=== PATIENT | male | born 2000 | race Caucasian/White ===

== ENCOUNTER → 2024-03-11 19:40 | Outpatient (CLI) | payer OTHER, SELFPAY ==
--- NOTE | 2024-03-11 19:45 | DI.MRI.S_ITS ---
PROCEDURE: MR SHOULDER LT WO CON INDICATIONS: PAIN IN LEFT SHOULDER TECHNIQUE: Noncontrast oblique coronal T2 fast spin echo with fat saturation, oblique sagittal T1 spin echo and T2 fast spin echo with fat saturation, axial T1 spin echo and T2 fast spin echo with fat saturation through the shoulder. COMPARISON: None. FINDINGS: Image quality: Excellent. Rotator cuff: The supraspinatus, infraspinatus, and subscapularis tendons appear intact throughout. Sagittal images demonstrate no muscle atrophy. Bones and bursae: No acute trabecular bone injury or fracture. Small chronic traction cystic changes are seen at the posterior superior humeral head. No focal glenohumeral cartilage defect is seen. The acromioclavicular joint is normally aligned. There is a small amount of fluid in the subacromial/subdeltoid bursa. No significant glenohumeral effusion. Capsule and soft tissues: There is nondisplaced tearing of the posterior inferior to posterior superior labrum. The remainder the labrum is intact. The proximal biceps long head tendon appears to be intact with normal positioning. There is partial effacement of the fat signal in the rotator interval. Glenohumeral ligaments appear to be intact. IMPRESSION: 1. Nondisplaced tearing of the posterior inferior to posterior superior labrum. 2. Proximal biceps long head tendon is intact. No rotator cuff tendon tearing. 3. Small subacromial/subdeltoid bursal effusion or mild bursitis. Approved by: Jimmy Nowak M.D. on 03/14/2024 at 9:13
== END ==
LOC: MRI 19:43
PROVIDERS: Referring Provider Nurse Practitioner Family; Visit Provider Nurse Practitioner Family
DX: S43.492A Other sprain of left shoulder joint, initial encounter (principal); M25.512 Pain in left shoulder
CPT/HCPCS: 73221

== ENCOUNTER → 2024-10-03 10:58 | Outpatient (CLI) | payer OTHER, SELFPAY ==
[2024-10-03 12:26] LABS: Alanine Aminotransferase 19 IU/L (<50); Albumin Globulin Ratio 1.7 (1.0-2.8); Alkaline Phosphatase 77 U/L (38-126); Aspartate Aminotransferase 23 IU/L (17-59); BUN Creatinine Ratio 22.7 (6-22); Bilirubin Total 0.9 mg/dL (0.2-1.3); Blood Urea Nitrogen 20 mg/dL (9-20); Calcium 10.1 mg/dL (8.4-10.2); Carbon Dioxide 27 mmol/L (22-32); Chloride 102 mmol/L (98-107); Estimated Glomerular Filt Rate > 60 mL/min (>60); Globulin 2.9 g/dL (1.7-4.1); Glucose 131 mg/dL (70-100); HEMOLYSIS < 15 (0-50); Potassium 4.5 mmol/L (3.4-5.1); Sodium 140 mmol/L (137-145); Total Protein 7.9 g/dL (6.3-8.2)
[2024-10-03 13:01] LABS: Appearance Urine UA CLEAR; Bilirubin Urine UA NEGATIVE (NEGATIVE); Color Urine UA YELLOW; Glucose Urine UA NEGATIVE (Negative); Ketones Urine UA TRACE (NEGATIVE); Leukocyte Esterase Urine UA NEGATIVE (NEGATIVE); Nitrite Urine UA NEGATIVE (Negative); Occult Blood Urine UA NEGATIVE (Negative); Protein Urine UA NEGATIVE (Negative); Specific Gravity Urine UA 1.025 (1.000-1.035); Urobilinogen Urine UA 0.2 E.U./dL (0.2); pH Urine UA 5.5 (4.5-8.0)
[2024-10-03 13:14] LABS: Bacteria Urine None Seen; Culture Indicated Urine Cult Not Indicated; RBC Urine None Seen (0-5/HPF); Squamous Epithelial Cell Urine None Seen (0-5/HPF); Urine Volume 10mL (spun); WBC Urine None Seen (0-5/HPF)
== END ==
PROVIDERS: Referring Provider Chiropractor; Visit Provider Chiropractor
DX: E11.9 Type 2 diabetes mellitus without complications (principal)
CPT/HCPCS: 80053; 81001